=== PATIENT | male | born 1945 | race Caucasian/White ===

== ENCOUNTER 2019-11-20 11:34 | Emergency (ER) | payer OTHER ==
--- NOTE | 2019-11-20 11:46 | ER Document Report ---
ED Medical Screen (RME) - General Chief Complaint: Palpitations Stated Complaint: POSSIBLE STROKE Time Seen by Provider: 11/20/19 11:42 Primary Care Provider: JENAE HERNANDEZ FNP-C [Primary Care Provider] - Follow up as needed Mode of Arrival: Wheelchair Notes: 74-year-old male being seen in the ED for dizziness lightheadedness. His pulse is been fluctuating between 174 and 88. He is in A. fib with RVR. He is alert oriented respirations regular nonlabored. With elevated blood pressure. He has been taken straight back to a room. I have greeted and performed a rapid initial assessment of this patient. A comprehensive ED assessment and evaluation of the patient, analysis of test results and completion of medical decision making process will be conducted by an additional ED providers. TRAVEL OUTSIDE OF THE [place] IN LAST 30 DAYS: No - Related Data Allergies/Adverse Reactions: No Known Allergies Allergy (Unverified 12/16/18 19:10) Past Medical History - Past Medical History Cardiac Medical History: Reports: Hx Hypercholesterolemia, Hx Hypertension Renal/ Medical History: Reports: Hx Kidney Stones. Denies: Hx Peritoneal Dialysis Past Surgical History: Reports: Hx Abdominal Surgery - hernia repair Doctor's Discharge - Discharge Referrals: JENAE HERNANDEZ FNP-C [Primary Care Provider] - Follow up as needed
--- NOTE | 2019-11-20 11:56 | EKG REPORT ---
SEVERITY:- ABNORMAL ECG - SINUS RHYTHM MULTIFORM VENTRICULAR PREMATURE COMPLEXES RIGHT BUNDLE BRANCH BLOCK possible old inferior NE : Confirmed by: El Medina MD 20-Nov-2019 11:55:41
[2019-11-20 12:02] LABS: ABSOLUTE BASOPHILS # (AUTO) 0.1 10^3/uL (0.0-0.2); ABSOLUTE EOSINOPHILS # (AUTO) 0.1 10^3/uL (0.0-0.6); ABSOLUTE LYMPHOCYTES (AUTO) 1.7 10^3/uL (0.5-4.7); ABSOLUTE MONOCYTES (AUTO) 0.6 10^3/uL (0.1-1.4); ABSOLUTE NEUT (AUTO) 5.5 10^3/uL (1.7-8.2); BASOPHILS % (AUTO) 0.7 % (0-2); EOSINOPHILS % (AUTO) 1.7 % (0-6); HEMATOCRIT 47.4 % (37.9-51.0); HEMOGLOBIN 16.3 g/dL (13.5-17.0); LYMPHOCYTES % (AUTO) 21.7 % (13-45); MEAN CORPUSCULAR HEMOGLOBIN 32.8 pg (27.0-33.4); MEAN CORPUSCULAR HGB CONC 34.3 g/dL (32.0-36.0); MEAN CORPUSCULAR VOLUME 96 fl (80-97); MONOCYTES % (AUTO) 7.4 % (3-13); PLATELET COUNT 197 10^3/uL (150-450); RED BLOOD COUNT 4.96 10^6/uL (4.35-5.55); RED CELL DISTRIBUTION WIDTH 14.1 % (11.5-14.0); SEGMENTED NEUTROPHILS % (AUTO) 68.5 % (42-78); TOTAL CELLS COUNTED % (AUTO) 100 %
[2019-11-20 12:03] LABS: VENOUS BLOOD BASE EXCESS -1.5 mmol/L; VENOUS BLOOD HCO3 23.7 mmol/L (20-32); VENOUS BLOOD PCO2 41.6 mmHg (35-63); VENOUS BLOOD PH 7.37 (7.30-7.42)
[2019-11-20 12:19] LABS: ALBUMIN 4.2 g/dL (3.5-5.0); ALKALINE PHOSPHATASE 58 U/L (38-126); ANION GAP 6 (5-19); ASPARTATE AMINO TRANSFERASE 28 U/L (17-59); BILIRUBIN,TOTAL 0.9 mg/dL (0.2-1.3); BLOOD UREA NITROGEN 24 mg/dL (7-20); CALCIUM 9.6 mg/dL (8.4-10.2); CARBON DIOXIDE 27 mmol/L (22-30); CHLORIDE 104 mmol/L (98-107); GLUCOSE 111 mg/dL (75-110)
[2019-11-20 12:30] LABS: INTERNATIONAL RATION (INR) 0.97; PROTHROMBIN TIME 12.9 SEC (11.4-15.4)
[2019-11-20 12:31] LABS: PARTIAL THROMBOPLASTIN TIME 25.1 SEC (23.5-35.8)
--- NOTE | 2019-11-20 12:48 | ER Document Report ---
Entered by GLORY RUBY SCRIBE 11/20/19 1242 Acting as scribe for:WHITNEY JUAREZ MD ED Dizziness/Weakness - General Chief Complaint: Dizziness Stated Complaint: POSSIBLE STROKE Time Seen by Provider: 11/20/19 11:42 Primary Care Provider: JENAE HERNANDEZ FNP-C [COMMUNITY BASED STAFF] - Follow up as needed Mode of Arrival: Wheelchair Information source: Patient Notes: This 74 year old male patient presents to the emergency department today with complaints of sudden onset of dizziness which started this morning around 7:10 AM. Patient states that he is visiting this area on vacation and he "slept in a little later than normaol today". Patient states he rolled over in bed at around 710 this morning and he felt very dizzy. Patient states he tried to stand up beside his bed and "everythning fell apart, lost control of everythi ng". Patient states that he notices the dizziness seems to be exacerbated with head movement. Patient states the dizziness seemed to last about 2 hours but slowly subsided. TRAVEL OUTSIDE OF THE [place] IN LAST 30 DAYS: No - Related Data Allergies/Adverse Reactions: No Known Allergies Allergy (Unverified 12/16/18 19:10) Past Medical History - General Information source: Patient - Social History Smoking Status: Former Smoker Cigarette use (# per day): No Frequency of alcohol use: None Drug Abuse: None Lives with: Family Family History: Reviewed & Not Pertinent Patient has homicidal ideation: No - Past Medical History Cardiac Medical History: Reports: Hx Hypercholesterolemia, Hx Hypertension Renal/ Medical History: Reports: Hx Kidney Stones Past Surgical History: Reports: Hx Cardiac Surgery - Mitral valve repair, Hx Herniorrhaphy - left inguinal hernia x2 Review of Systems - Review of Systems Constitutional: No symptoms reported EENT: No symptoms reported Cardiovascular: See HPI, Dizziness Respiratory: No symptoms reported Gastrointestinal: No symptoms reported Genitourinary: No symptoms reported Male Genitourinary: No symptoms reported Musculoskeletal: No symptoms reported Skin: No symptoms reported Hematologic/Lymphatic: No symptoms reported Neurological/Psychological: denies: Headaches -: Yes All other systems reviewed and negative Physical Exam - Vital signs Vitals: Temp 97.4 F 11/20/19 11:35 - Notes Notes: Physical Exam: General: Alert, appears well. HEENT: Normocephalic. Atraumatic. PERRL. Extraocular movements intact. Oropharynx clear. No nystagmus or dizziness elicited with rapid head movement. Neck: Supple. Non-tender. Respiratory: No respiratory distress. Clear and equal breath sounds bilaterally. Cardiovascular: Frequent irregular beats which appear to be PVCs on the monitor. Abdominal: Normal Inspection. Non-tender. No distension. Normal Bowel Sounds. Back: No gross abnormalities. Extremities: Moves all four extremities. Upper extremities: Normal inspection. Normal ROM. Normal strength and coordination. Lower extremities: Normal inspection. No edema. Normal ROM. Normal strength and coordination. Neurological: Normal cognition. AAOx4. Normal speech. Psychological: Normal affect. Normal Mood. Skin: Warm. Dry. Normal color. Course - Re-evaluation Re-evalutation: 11/20/19 13:21 Patient was unable to get an MRI of his head due to metal in his chest related to the mitral valve repair. He did not know enough details about the procedure to confirm it would be safe to do the MRI. A CT scan of the head will be done. 11/20/19 13:24 The patient has a chronic right bundle branch block. He appears to be having frequent PACs, but due to the right bundle branch block morphology it is difficult to know for sure if these are PACs or PVCs. 11/20/19 13:51 A repeat EKG done about 2 hours after the first 1, shows a sinus rhythm with frequent PACs and right bundle branch block. 11/20/19 16:13 CT scan of the head was unremarkable. I went back to check on the patient and he reports that he has a little bit of dizziness. I had him sit up and look about rapidly and it did make the symptoms a little bit worse. When I asked him when the dizziness came back, he stated it never went away. During the initial H&P, he denied any dizziness and stated it had begun to slowly improve about 2 hours prior to arrival, and completely resolved shortly after arrival to the emergency room. 11/20/19 17:54 A little over an hour after the patient received Antivert, he is reevaluated. He does not have any dizziness at this time. He was allowed to sit up and look about rapidly and this did not provoke symptoms. He was then allowed to stand up and walk around the room, he states he feels normal and does not have any unsteadiness or dizziness. He is able to pick up attendant each leg and put it back down without any weakness or ataxia. - Vital Signs Vital signs: Temp Pulse Resp BP Pulse Ox 97.5 F 113 H 20 156/75 H 94 11/20/19 17:02 11/20/19 11:50 11/20/19 17:01 11/20/19 17:01 11/20/19 17:01 - Laboratory Result Diagrams: 11/20/19 11:47 11/20/19 11:47 Laboratory results interpreted by me: 11/20/19 11/20/19 11:47 11:47 RDW 14.1 H BUN 24 H Glucose 111 H - Diagnostic Test Radiology reviewed: Image reviewed, Reports reviewed - CT scan of the head is unremarkable - EKG Interpretation by Me EKG shows normal: Sinus rhythm, [place], Intervals, QRS Complexes, ST-T Waves Rate: Normal - 76 Rhythm: PVC's, APC's [place]/QRS: RBBB When compared to previous EKG there are: Previous EKG unavailable Discharge - Discharge Clinical Impression: Vertigo, Premature atrial contractions Condition: Stable Disposition: HOME, SELF-CARE Additional Instructions: Vertigo: You have experienced an episode of vertigo -- a whirling dizziness which may be accompanied by nausea and vomiting or staggering. Vertigo is often caus ed by an irritation of the inner ear, in which case it is called labyrinthitis. It can also be a symptom of a degenerating inner ear, nerve damage, or brain injury. Your physician has evaluated you to determine whether any further testing is necessary. Vertigo is often treated with dramamine or meclizine. These medications are helpful, but stronger medication may be needed if you are vomiting. Rest in bed. You should not drive or operate machinery until completely better. It may take one to three weeks for recovery. If there are new symptoms, such as decreased hearing or vision, severe headache, weakness or faintness, or confusion, call the physician. PVCs an PACs: Your EKG and monitor today show frequent PACs(premature atrial contractions) and occasional PVCs(premature ventricular contractions). Often the "extra" beat is not felt -- instead you feel a pause followed by a strong heartbeat. These premature beats are not harmful to you. Extra beats occur more commonly after caffeine, nicotine, alcohol, cold pills, and diet pills. Emotional stress or fatigue also provoke them. Extra beats are only dangerous when heart disease is present. Premature beats usually need no treatment. If they are frequent, or if evidence of heart disease develops, medication can be given to suppress them. Contact the physician at once if you develop persistent lightheadedness, shortness of breath, chest pain, or swelling of the ankles. The dizziness your feeling today appears to most likely be vertigo symptoms. You will be given a prescription of the Antivert that you received here which seemed to help your dizziness. You should not drive until you have Been completely symptom-free for several days. Follow-up with your primary care provider this week for recheck, to discuss your frequent PACs, and try to obtain records from [facility] that described the mitral valve procedure and to find out if the metal that was used is all right for the MRI machine. RETURN TO THE EMERGENCY ROOM IF ANY NEW OR WORSENING SYMPTOMS. Prescriptions: Meclizine HCl [Antivert 25 mg Tablet] 25 mg PO TID PRN #30 tablet PRN Reason: Referrals: JENAE HERNANDEZ, TRANSPORTATION CLERK-C [COMMUNITY BASED STAFF] - Follow up as needed I personally performed the services described in the documentation, reviewed and edited the documentation which was dictated to the scribe in my presence, and it accurately records my words and actions.
--- NOTE | 2019-11-20 13:04 | RADIOLOGY REPORT (SQ) ---
EXAM DESCRIPTION: CHEST SINGLE VIEW IMAGES COMPLETED DATE/TIME: 11/20/2019 12:51 pm REASON FOR STUDY: a fib COMPARISON: None. EXAM PARAMETERS: NUMBER OF VIEWS: One view. TECHNIQUE: Single frontal radiographic view of the chest acquired. RADIATION DOSE: NA LIMITATIONS: None. FINDINGS: LUNGS AND PLEURA: Mild ill-defined right infrahilar retrocardiac opacities. No pleural ef fusion. No pneumothorax. MEDIASTINUM AND HILAR STRUCTURES: No masses. Contour normal. HEART AND VASCULAR STRUCTURES: Heart normal in size. Normal vasculature. BONES: No acute findings. HARDWARE: None in the chest. OTHER: No other significant finding. IMPRESSION: Ill-defined right infrahilar and retrocardiac opacities, possibly atelectasis or infecti on. TECHNICAL DOCUMENTATION: JOB ID: [id number] 2010 [employer]- All Rights Reserved Reading location - IP/workstation name: [email or web address]
--- NOTE | 2019-11-20 14:16 | RADIOLOGY REPORT (SQ) ---
EXAM DESCRIPTION: CT HEAD WITHOUT IMAGES COMPLETED DATE/TIME: 11/20/2019 2:00 pm REASON FOR STUDY: Sudden onset dizziness COMPARISON: None. TECHNIQUE: Axial images acquired through the brain without intravenous contrast. Images reviewed wi th bone, brain and subdural windows. Additional sagittal and coronal reconstructions were generated. Images stored on PACS. All CT scanners at this facility use dose modulation, iterative reconstruction, and/or weight based d osing when appropriate to reduce radiation dose to as low as reasonably achievable (ALARA). [facility]: Dose Right [facility]: CareDose [facility]: Dose Right [facility]: Teradose 4D [facility]: Smart [employer]Check RADIATION DOSE: CT Rad equipment meets quality standard of care and radiation dose reduction techniq ues were employed. CTDIvol: 53.2 mGy. DLP: 991 mGy-cm. LIMITATIONS: None. FINDINGS: VENTRICLES: Normal size and contour. The cisterns are patent. CEREBRUM: No masses. No hemorrhage. No midline shift. No evidence for acute infarction. Normal gra y/white matter differentiation. No areas of low density in the white matter. CEREBELLUM: No masses. No hemorrhage. No alteration of density. No evidence for acute infarction. EXTRAAXIAL SPACES: No fluid collections. No masses. ORBITS AND GLOBE: No intra- or extraconal masses. Normal contour of globe without masses. CALVARIUM: No fracture. PARANASAL SINUSES: No fluid or mucosal thickening. SOFT TISSUES: No mass or hematoma. OTHER: No other significant finding. IMPRESSION: 1. No acute intracranial abnormality. EVIDENCE OF ACUTE STROKE: NO. COMMENT: Quality ID # [id number]: Final reports with documentation of one or more dose reduction techniques (e.g., Automated exposure control, adjustment of the mA and/or kV according to patient size, use of iterative reconstruction technique) TECHNICAL DOCUMENTATION: JOB ID: [id number] 2010 [employer] All Rights Reserved Reading location - IP/workstation name: [email or web address]
[2019-11-20] MEDS ORDERED: MECLIZINE HCL 25 MG TABLET PO ONE (16:07)
[2019-11-20 17:44] VITALS: BP 156/75
--- NOTE | 2019-11-20 19:57 | EKG REPORT ---
SEVERITY:- ABNORMAL ECG - WANDERING PACEMAKER PROBABLE LEFT ATRIAL ABNORMALITY RIGHT BUNDLE BRANCH BLOCK : Confirmed by: El Medina MD 20-Nov-2019 19:57:13
== END 2019-11-20 18:05 | disposition home or self-care (01) ==
LOC: ER 11:34
DX: I49.1 Atrial premature depolarization (principal); R42 Dizziness and giddiness; Z87.891 Personal history of nicotine dependence; I10 Essential (primary) hypertension; I45.10 Unspecified right bundle-branch block
CPT/HCPCS: 36415; 70450; 71045; 80053; 82803; 83605; 83735; 84484; 85025; 85610; 85730; 87040; 93005; 93010; 99285